=== PATIENT | male | born 1965 | race African-American/Black ===

== ENCOUNTER 2020-05-13 13:17 | Emergency (ER) | payer MEDICAID, MEDICARE, OTHER ==
[~2020-05-13] VITALS: Ht 188 cm; Wt 109.1 kg
[2020-05-13 13:36] VITALS: BP 154/96
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
[2020-05-13 13:50] LABS: ALBUMIN 3.5 g/dL (3.4-5.0); ANION GAP 6 mmol/L (5-15); CALCIUM 8.9 mg/dL (8.5-10.1); CHLORIDE 106 mmol/L (98-107); CREATININE 1.27 mg/dL (0.7-1.3)
[2020-05-13 13:51] LABS: BASOPHILS # (AUTO) 0.11 x10^3/uL (0-0.1); BASOPHILS % (AUTO) 1 % (0-1); EOSINOPHILS # (AUTO) 0.06 x10^3/uL (0-0.4); EOSINOPHILS % (AUTO) 1 % (1-7); LYMPHOCYTES % (AUTO) 15 % (22-44); MD NO; MEAN CORPUSCULAR HEMOGLOBIN 29.4 pg (27.5-34.5); MEAN CORPUSCULAR HGB CONC 32.8 g/dL (33.2-36.2); MEAN CORPUSCULAR VOLUME 89.7 fL (81-97); MEAN PLATELET VOLUME 8.5 fL (7.4-10.4); MONOCYTES # (AUTO) 1.27 x10^3/uL (0.2-0.8); MONOCYTES % (AUTO) 10 % (2-9); NEUTROPHILS # (AUTO) 9.39 x10^3/uL (1.8-6.8); NEUTROPHILS % (AUTO) 74 % (42-75); PLATELET COUNT 309 x10^3/uL (130-400); RED BLOOD COUNT 5.44 x10^6/uL (4.38-5.82); RED CELL DISTRIBUTION WIDTH 14.4 % (9.4-14.8)
--- NOTE | 2020-05-13 14:51 | NUR ---
PATIENT WAS SEEN BY HARVINDER HONG APRN. LUNCH TRAY ORDERED AT THE REQUEST OF HAL.
[2020-05-13] MEDS ORDERED: KETOROLAC 60 MG/2 ML ONE (15:19)
[2020-05-13] MEDS ORDERED: KETOROLAC 30 MG/1 ML IM ONE (15:30)
--- NOTE | 2020-05-13 16:00 | NUR ---
lunch tray served to patient.
--- NOTE | 2020-05-13 19:15 | NUR ---
REPORT FROM BILL ASSUMED CARE OF PT AT THIS TIME
== END 2020-05-13 20:02 | disposition home or self-care (01) ==
LOC: ED 17:50
DX: M25.462 Effusion, left knee (principal); I10 Essential (primary) hypertension; M10.9 Gout, unspecified; F17.200 Nicotine dependence, unspecified, uncomplicated
CPT/HCPCS: 36415; 80048; 80307; 82040; 85025; 96372; 99283; J1885

== ENCOUNTER 2020-05-14 08:00 | Emergency (ER) | payer MEDICAID ==
[~2020-05-14] VITALS: Ht 188 cm; Wt 108.8 kg
[2020-05-14 08:05] VITALS: BP 161/95
--- NOTE | 2020-05-14 08:59 | NUR ---
CLOCK AND WATCH HANDS PAINTER: PT TO ROOM FROM [facility]
[2020-05-14] MEDS ORDERED: IBUPROFEN 800 MG TABLET PO ONE (09:30)
--- NOTE | 2020-05-14 09:33 | NUR ---
PT PRESENTS TO ED WITH C/O LEFT KNEE PAIN WHICH IS CHRONIC IN NATURE, HX JOINT EFFUSION WITH RECENT ARTHROCENTESIS AT [facility]. PT DECLINES MD'S OFFER FOR REPEAT ARTHROCENTESIS. PT ALSO NOTES HEADACHE UPON AWAKENING TODAY, PT IS A&OX4, NEURO INTACT. PUPILS EQUAL, ROUND AND REACTIVE. NO DRIFT. PT REQUESTING IBUPROFEN AND MEAL. CALL LIGHT IN REACH.
[2020-05-14] MEDS ORDERED: IBUPROFEN 800 MG TABLET ONE (09:49)
--- NOTE | 2020-05-14 10:11 | NUR ---
PT GIVEN SNACK, MEDICATED PER EMAR, AND GIVEN TAXI VOUCHER. PT GIVEN DC INSTRUCTIONS AND SCRIPT, EDUCATED REGARDING RX FOR NAPROXEN. FAUSTINA WRAP APPLIED TO LEFT KNEE BY EEDT, PT INSTRUCTED TO GET DRESSED FOR DC.
== END 2020-05-14 10:35 ==
LOC: ED 10:22
DX: M17.11 Unilateral primary osteoarthritis, right knee (principal); M10.9 Gout, unspecified; I10 Essential (primary) hypertension
CPT/HCPCS: 99282

== ENCOUNTER 2020-05-16 08:53 | Emergency (ER) | payer MEDICAID ==
[~2020-05-16] VITALS: Ht 188 cm; Wt 100.0 kg
--- NOTE | 2020-05-16 09:06 | NUR ---
TO ROOM FROM [facility]IA [facility].
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
--- NOTE | 2020-05-16 10:30 | NUR ---
PT RESTING, XRAY AND US PENDING.
[2020-05-16 11:23] VITALS: BP 183/93
--- NOTE | 2020-05-16 11:55 | NUR ---
Patient/Caregiver given discharge instructions and they have confirmed that they understand the instructions. Patient ambulatory with steady gait.
== END 2020-05-16 12:38 | disposition home or self-care (01) ==
LOC: ED 12:20
DX: M25.462 Effusion, left knee (principal); M79.661 Pain in right lower leg; M10.9 Gout, unspecified; I10 Essential (primary) hypertension
CPT/HCPCS: 99284

== ENCOUNTER 2020-05-17 15:43 | Emergency (ER) | payer MEDICAID ==
[~2020-05-17] VITALS: Ht 188 cm; Wt 104.5 kg
[2020-05-17 15:50] VITALS: BP 187/108
[2020-05-17] MEDS ORDERED: KETOROLAC 30 MG/1 ML ONE (16:21)
[2020-05-17] MEDS ORDERED: KETOROLAC 30 MG/1 ML IM ONE (16:30)
[2020-05-17] MEDS ORDERED: FLUORESCEIN OPHTHALMIC 1 MG STRIP LEFTEYE ONE (16:30)
[2020-05-17] MEDS ORDERED: PROPARACAINE OPHTH 0.5%, 15ML LEFTEYE ONE (16:30)
--- NOTE | 2020-05-17 17:40 | NUR ---
PT REFUSES TO WEAR BRACE. STATES HE CAN'T GET AROUND WITH IT ON. PT EDUCATED ON SAFE MOBILITY AND USE OF CRUTCHES. PROVIDER NOTIFIED.
== END 2020-05-17 19:00 | disposition home or self-care (01) ==
LOC: ED 17:07
DX: S83.91XA Sprain of unspecified site of right knee, initial encounter (principal); I10 Essential (primary) hypertension; M19.90 Unspecified osteoarthritis, unspecified site; F17.200 Nicotine dependence, unspecified, uncomplicated; X58.XXXA Exposure to other specified factors, initial encounter; Y93.89 Activity, other specified; Y92.89 Other specified places as the place of occurrence of the external cause; Y99.8 Other external cause status
CPT/HCPCS: 29505; 73564; 99283; J1885

== ENCOUNTER 2020-05-21 11:28 | Emergency (ER) | payer MEDICAID ==
[~2020-05-21] VITALS: Ht 188 cm; Wt 68.0 kg
[2020-05-21 11:29] VITALS: BP 161/102
[2020-05-21] MEDS ORDERED: NAPROXEN 500 MG TABLET ONE (11:54)
[2020-05-21] MEDS ORDERED: AMLODIPINE 5 MG TABLET ONE (11:54)
[2020-05-21] MEDS ORDERED: AMLODIPINE 5 MG TABLET PO ONE (12:00)
[2020-05-21] MEDS ORDERED: NAPROXEN 500 MG TABLET PO ONE (12:00)
== END 2020-05-21 12:32 | disposition home or self-care (01) ==
LOC: ED 12:18
DX: G89.29 Other chronic pain (principal); M25.562 Pain in left knee; I10 Essential (primary) hypertension; R26.2 Difficulty in walking, not elsewhere classified; F17.210 Nicotine dependence, cigarettes, uncomplicated
CPT/HCPCS: 99283; 99406

== ENCOUNTER 2020-05-23 09:44 | Emergency (ER) | payer MEDICAID ==
[~2020-05-23] VITALS: Ht 188 cm; Wt 109.0 kg
[2020-05-23] MEDS ORDERED: KETOROLAC 30 MG/1 ML IM ONE (10:00)
[2020-05-23] MEDS ORDERED: KETOROLAC 60 MG/2 ML ONE (10:12)
[2020-05-23 10:38] LABS: MEAN CORPUSCULAR HEMOGLOBIN 29.2 pg (27.5-34.5); MEAN CORPUSCULAR HGB CONC 32.9 g/dL (33.2-36.2); MEAN PLATELET VOLUME 8.4 fL (7.4-10.4); PLATELET COUNT 398 x10^3/uL (130-400); RED BLOOD COUNT 5.21 x10^6/uL (4.38-5.82); RED CELL DISTRIBUTION WIDTH 14.1 % (9.4-14.8)
[2020-05-23 10:40] LABS: ALBUMIN 3.1 g/dL (3.4-5.0); ANION GAP 7 mmol/L (5-15); CALCIUM 9.1 mg/dL (8.5-10.1); CHLORIDE 102 mmol/L (98-107)
[2020-05-23 11:19] LABS: BASOPHILS # (AUTO) 0.03 x10^3/uL (0-0.1); BASOPHILS % (AUTO) 0 % (0-1); EOSINOPHILS # (AUTO) 0.09 x10^3/uL (0-0.4); EOSINOPHILS % (AUTO) 1 % (1-7); LYMPHOCYTES # (AUTO) 1.21 x10^3/uL (1-3.4); LYMPHOCYTES % (AUTO) 11 % (22-44); MD SCAN; MONOCYTES # (AUTO) 0.89 x10^3/uL (0.2-0.8); MONOCYTES % (AUTO) 8 % (2-9); NEUTROPHILS # (AUTO) 8.46 x10^3/uL (1.8-6.8); NEUTROPHILS % (AUTO) 79 % (42-75)
[2020-05-23 12:37] VITALS: BP 174/82
== END 2020-05-23 12:39 | disposition home or self-care (01) ==
LOC: ED 10:08
DX: M25.562 Pain in left knee (principal); M25.561 Pain in right knee; M25.522 Pain in left elbow; I10 Essential (primary) hypertension; M10.9 Gout, unspecified; R00.0 Tachycardia, unspecified
CPT/HCPCS: 36415; 73080; 73564; 80048; 82040; 84550; 85025; 96372; 99284; J1885

== ENCOUNTER 2020-05-24 06:30 | Emergency (ER) | payer MEDICAID ==
[~2020-05-24] VITALS: Ht 188 cm; Wt 111.0 kg
[2020-05-24 06:37] VITALS: BP 192/113
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
--- NOTE | 2020-05-24 07:19 | NUR ---
PT TO RM FROM LOBBY AT THIS TIME
[2020-05-24] MEDS ORDERED: KETOROLAC 60 MG/2 ML ONE (07:22)
[2020-05-24] MEDS ORDERED: KETOROLAC 30 MG/1 ML IM ONE (07:30)
--- NOTE | 2020-05-24 07:30 | NUR ---
THIS RN WENT TO ATTEMPT TO ADMIN ORDERED TORADOL, ASKED PT TO TAKE HIS ARM OUT OF HIS SLEEVE, PT STATES " I CANT MOVE" THIS RN REPLIED "CAN YOU PULL YOUR ARM OUT OF ITS SLEEVE, WERE YOU ABLE TO PUT YOUR SHIRT ON THIS MORNING?" PT THEN STATES, "YOU SMART ASS FUCKING BITCH" DELANEY ZAMAN MADE AWARE OF PTS HOSTILE BEHAVIOR, SHE WENT TO SPEAK TO PT EDUCATED TO NOT VERBALLY ASSUALT STAFF, PT REQUESTING ANOTHER RN AGAIN STATING "SHE IS A FUCKING SMART ASS BITCH", ASKED PAPA RN TO ADMIN TORADOL, PT THEN TO DC.
== END 2020-05-24 08:15 | disposition home or self-care (01) ==
LOC: ED 07:28
DX: M10.061 Idiopathic gout, right knee (principal); I10 Essential (primary) hypertension
CPT/HCPCS: 96372; 99283; J1885

== ENCOUNTER 2020-06-01 07:44 | Emergency (ER) | payer MEDICAID ==
[~2020-06-01] VITALS: Ht 190.5 cm; Wt 110.0 kg
[2020-06-01 07:47] VITALS: BP 174/108
[2020-06-01] MEDS ORDERED: KETOROLAC 30 MG/1 ML IM ONE (08:00)
--- NOTE | 2020-06-01 08:00 | NUR ---
PATIENT BIB [facility] FOR C/O LEFT ANKLE &LEFT KNEE PAIN THAT STARTED LAST NIGHT AND GOT PROGRESSIVELY WORSE. PATIENT STATES "IT'S MY GOUT." PATIENT WAS GIVEN 600 MG IBUPROFEN AND 500 MG TYLENOL ENROUTE TO THE HOSPITAL. PATIENT STATES HIS PAIN LEVEL NOW IS 8/10. PATIENT WAS NOTED TO BE HYPERTENSIVE BY [facility], BP NOW IS 174/108, PATIENT STATES HE HAS NOT BEEN TAKING HIS BP MEDS. PATIENT IS A&OX4, FULL RANGE OF MOTION IN LEFT KNEE AND ANKLE, SOME PAIN WITH MOVEMENT. NO OTHER COMPLAINTS AT THIS TIME.
[2020-06-01] MEDS ORDERED: KETOROLAC 60 MG/2 ML ONE (08:02)
--- NOTE | 2020-06-01 08:05 | NUR ---
60 MG IM TORADOL GIVEN, NO FURTHER NEEDS AT THIS TIME.
--- NOTE | 2020-06-01 08:30 | NUR ---
Patient given discharge instructions and they have confirmed that they understand the instructions. Patient ambulatory with yrn, given cab voucher.
== END 2020-06-01 08:49 | disposition home or self-care (01) ==
LOC: ED 08:02
DX: M25.572 Pain in left ankle and joints of left foot (principal); M25.562 Pain in left knee; M10.9 Gout, unspecified; F17.200 Nicotine dependence, unspecified, uncomplicated; I10 Essential (primary) hypertension
CPT/HCPCS: 96372; 99283; J1885